=== PATIENT | male | born 1985 | race Caucasian/White ===

== ENCOUNTER 2023-09-02 14:31 | Emergency (ER) | payer OTHER, SELFPAY ==
--- NOTE | ~2023-09-02 | XR_ITS ---
EXAMINATION: XR chest 2V Exam Date/Time: 09/02/2023 15:10 CDT HISTORY: chest pain anterior in the center Comparison: None. RESULT: Lines, tubes, and devices: None. Lungs and pleura: Clear. Cardiomediastinal silhouette: Unremarkable. Other: No acute osseous or upper abdominal finding. IMPRESSION: No acute cardiopulmonary process. Reviewed, dictated and finalized at location K.
--- NOTE | 2023-09-02 14:32 | ECG_ITS ---
SEE SCANNED COPY FOR CONFIRMED REPORT. MTDD
[2023-09-02 14:46] VITALS: BP 186/96; PULSE 86; RESP 18; TEMP 36.3; O2SAT 100
[2023-09-02 15:12] LABS: Basophils Percent Auto 0.6 % (0.2-1.2); Eosinophils Absolute Auto 0.2 K/mm3 (0-0.3); Eosinophils Percent Auto 2.6 % (0-4.4); Hematocrit 45.8 % (42.0-52.0); Immature Granulocyte Absolute 0.02 K/mm3 (0.00-0.031); Immature Granulocyte Percent A 0.3 % (0-0.5); Lymphocytes Absolute Auto 2.34 K/mm3 (0.9-3.2); Lymphocytes Percent Auto 33.2 % (18.3-44.2); Mean Corpuscular HGB Conc 34.9 g/dl (32-36); Mean Corpuscular Hemoglobin 30.3 pg (26-34); Mean Corpuscular Volume 86.7 fl (80-100); Mean Platelet Volume 9.1 fl (7.4-10.4); Monocytes Absolute Auto 0.5 K/mm3 (0.1-0.6); Monocytes Percent Auto 7.1 % (2.6-8.5); Neutrophils Percent Auto 56.2 % (45.5-73.1); Platelet Count Result 207 k/mm3 (150-375); Red Blood Count 5.28 M/mm3 (4.6-6.20); Red Cell Distribution Width 12.4 % (11.5-14.5); White Blood Count 7.1 K/mm3 (4.5-10.0)
[2023-09-02 15:21] LABS: Alanine Aminotransferase 44 U/L (6-50); Albumin Level 4.6 g/dL (3.5-5.1); Alkaline Phosphatase 84 U/L (38-126); Anion Gap 7 mmol/L (4-12); Aspartate Amino Transferase 36 U/L (17-59); Bilirubin,Total 0.8 mg/dL (0.2-1.3); Blood Urea Nitrogen 14 mg/dL (9-20); Calcium 9.1 mg/dL (8.4-10.2); Carbon Dioxide 28 mmol/L (22-30); Chloride 102 mmol/L (98-107); Estimated CRCL calculation 173 ml/min; Estimated Glomerular Filt Rate > 60; Glucose 215 mg/dL (65-110); Lipase 99 U/L (23-300); Potassium 3.8 mmol/L (3.4-5.0); Sodium 137 mmol/L (137-145)
[2023-09-02 15:31] LABS: Partial Thromboplastin Time 29.4 Seconds (22.3-36.8); Prothrombin Time 13.2 Seconds (11.1-14.7)
[2023-09-02 15:33] LABS: Troponin I < 0.012 ng/mL (0.000-0.034)
[2023-09-02 16:50] VITALS: BP 145/85; PULSE 80; RESP 18; O2SAT 95
--- NOTE | 2023-09-02 16:51 | ED.CHESTPAIN ---
HPI - Chest Pain General Chief Complaint: Chest Pain <Amadou Armenta APRN - Last Filed: 09/02/23 16:58> Stated Complaint: chest discomfort, high bp <Amadou Armenta APRN - Last Filed: 09/02/23 16:58> Time Seen by Provider: 09/02/23 16:45 <Amadou Armenta APRN - Last Filed: 09/02/23 16:58> Focused HPI: Brady is a 38-year-old male patient presenting to the emergency room today with complaints of left-sided midsternal chest discomfort and high blood pressure. He reports over the past week he has had some left-sided mid sternal chest discomfort. Denies any shortness of breath or radiation of the pain. No known injury or heavy lifting. He is a nonsmoker. History of high blood pressure and takes lisinopril 40mg/hydrochlorothiazide 25mg. Blood pressure was 186/96 initially. General: Well-developed, well nourished, in no apparent distress Head: Normocephalic, atraumatic. Cardio: Regular rate and rhythm, s1 and s2 normal, no murmur appreciated. Resp: Clear to auscultation bilaterally, no rhonchi, rales, wheezing or rubs. Extremities: No deformity, no edema, no cyanosis, capillary refill less than 2 seconds, peripheral pulses palpable and strong. Integumentary: [place], warm, and dry, intact without lesion, no rashes. Patient screened in triage and initial orders placed. Additional care and disposition to be based upon diagnostic testing and treatment. <Amadou Armenta APRN - Last Filed: 09/02/23 16:58> Source: patient <Amadou Armenta APRN - Last Filed: 09/02/23 16:58> RN notes reviewed and old records reviewed <Yessenia Trimble MD - Last Filed: 09/02/23 21:48> Mode of arrival: ambulatory <Amadou Armenta APRN - Last Filed: 09/02/23 16:58> Limitations: no limitations <Amadou Armenta APRN - Last Filed: 09/02/23 16:58> History of Present Illness HPI narrative: This is a 38 year old male with history of hypertension and DM who presents for evaluation of chest discomfort. He states last week he noticed some mild intermittent nonradiating left chest discomfort. He noticed discomfort again this weekend . He describes pain as ache that may last 30 minutes. He states his pain is nonexertional. He denies associated nausea, diaphoresis, shortness or breath. He went to wound clinic today and he was found to have elevated blood pressure so he was sent to his PCP. His PCP increased his blood pressure medication and discharged patient. Patient called clinic about his pain so he was told to come to ER. He denies pain now. He drove to [place] this weekend. <Yessenia Trimble MD - Last Filed: 09/02/23 21:48> MD complaint: chest discomfort <Yessenia Trimble MD - Last Filed: 09/02/23 21:48> Onset (ago): week(s) <Yessenia Trimble MD - Last Filed: 09/02/23 21:48> Timing of current episode: episodic <Yessenia Trimble MD - Last Filed: 09/02/23 21:48> Pain location: left chest <Yessenia Trimble MD - Last Filed: 09/02/23 21:48> Pain radiation: none <Yessenia Trimble MD - Last Filed: 09/02/23 21:48> Quality: aching <Yessenia Trimble MD - Last Filed: 09/02/23 21:48> Treatment prior to arrival: none <Yessenia Trimble MD - Last Filed: 09/02/23 21:48> Risk Factors Coronary artery disease risk factors: hypertension <Yessenia Trimble MD - Last Filed: 09/02/23 21:48> Related Data Allergies/Adverse Reactions: Allergies Allergy/AdvReac Type Severity Reaction Status Date / Time No Known Allergies Allergy Verified 09/02/23 14:52 <Amadou Armenta APRN - Last Filed: 09/02/23 16:58> Review of Systems Constitutional: Constitutional: Denies weakness <Yessenia Trimble MD - Last Filed: 09/02/23 21:48> Cardiovascular: Cardiovascular: Reports chest pain, Denies syncope, Denies rapid heart rate, Denies irregular heart rhythm, Denies leg edema and Denies dyspnea <Yessenia Trimble MD - Last Filed:
[2023-09-02 17:14] LABS: Appearance Urine Clear (Clear); Bilirubin Urine Negative (Negative); Blood Urine Negative (Negative); Color Urine Yellow (Yellow); Glucose Urine UA 1+ mg/dL (Negative); Ketones Urine Negative (Negative); Leukocyte Esterase Ur Negative LEU/UL (Negative); Nitrate Urine Negative (Negative); Protein Urine Negative (Negative); Specific Grav Ur 1.023 (1.001-1.035); Urobilinogen Urine 0.2 mg/dL (<2.0)
[2023-09-02 17:17] VITALS: BP 145/84; PULSE 73; RESP 14; O2SAT 97
--- NOTE | 2023-09-02 17:17 | PC.NURSE ---
Patient denies any CP or SOB at this time
[2023-09-02 17:29] LABS: Add Urine Microscopic? NO
--- NOTE | 2023-09-02 18:29 | ECG_ITS ---
SEE SCANNED COPY FOR CONFIRMED REPORT. MTDD
[2023-09-02 18:43] LABS: Troponin I < 0.012 ng/mL (0.000-0.034)
[2023-09-02 18:53] LABS: D Dimer 0.37 ug/mL (<0.48)
[2023-09-02 19:25] VITALS: BP 134/90; PULSE 82; RESP 15; O2SAT 97
== END 2023-09-02 19:47 | disposition home or self-care (01) ==
PROVIDERS: Emergency Medicine; Nurse Practitioner Family; Emergency Provider General Practice
DX: R07.89 Other chest pain (principal); I10 Essential (primary) hypertension; F41.9 Anxiety disorder, unspecified
CPT/HCPCS: 36415; 71046; 80053; 81003; 83690; 84484; 85025; 85380; 85610; 85730; 93005; 99284